=== PATIENT | male | born 2000 | race Caucasian/White ===

== ENCOUNTER 2023-10-01 21:19 | Emergency (ER) | payer OTHER ==
[~2023-10-01] VITALS: Ht 167.6 cm; Wt 62.6 kg
[2023-10-01 21:30] VITALS: BP_SYST 138; PULSE 98; RESP 16; TEMP 98.5; O2SAT 100
[2023-10-01 23:50] VITALS: BP_SYST 122; PULSE 87; RESP 18; TEMP 98.4; O2SAT 100
== END 2023-10-01 23:45 | disposition home or self-care (01) ==
LOC: SED 21:19
DX: K42.9 Umbilical hernia without obstruction or gangrene (principal); Z79.899 Other long term (current) drug therapy
CPT/HCPCS: 99281